=== PATIENT | female | born 1970 | race Two or more races ===

== ENCOUNTER 2025-03-03 18:40 | Emergency (ER) | payer SELFPAY ==
[2025-03-03 18:57] VITALS: BP 131/78; PULSE 76; RESP 18; TEMP 36.9; O2SAT 97; BMI 29.4
--- NOTE | 2025-03-03 20:00 | EDNOTE_ITS ---
ED Dental RME/HPI General Chief complaint: General Adult/Misc Complain Stated complaint: R CHEEK SWELLING AND HEADACHE SINCE YEST Time Seen by Provider: 03/03/25 18:51 Arrival date/time: 03/03/25 18:40 This is a case of 55-year-old female with no medical history came in in the emergency room due to dental pain and facial swelling history of present illness started 3 days prior to arrival in the emergency room when patient started to have pain on the right upper dental worsening of the symptoms now with swelling on the right cheek and pain extended to the right side of the head thus decided to sought consult here in the emergency room patient denies any fever or chills Limitations: no limitations Related Data Home Medications ?Medication ?Instructions ?Recorded ?Confirmed ibuprofen 800 mg tablet 800 mg PO Q8HR PRN PAIN #0 t abs 05/24/15 Previous Rx's ?Medication ?Instructions ?Recorded Hydrocodone/Acetaminophen * (NORCO 1 tab PO Q4H PRN PA IN #20 tabs 05/24/15 5/325 *) codeine 10 mg-guaifenesin 100 mg/5 5 ml PO Q4H PRN cou gh #118 mL 02/27/18 mL oral liquid (Guaiatussin AC) hydroxyzine HCl 25 mg tablet 25 mg PO TID PRN Anxiety #20 tabs 08/13/20 ipratropium bromide 21 mcg (0.03 2 spray intranasal BI D #30 mL 08/13/20 %) nasal spray prednisone 20 mg tablet See Rx Instructions .Route 0 08/13/20 .COMPLEX #8 tabs clindamycin HCl 300 mg capsule 300 mg PO Q6H 10 days # 40 caps 03/03/25 (Cleocin HCl) hydrocodone 5 mg-acetaminophen 325 1 tab PO Q6H PRN pa in #12 tabs 03/03/25 mg tablet Allergies Allergy/AdvReac Type Severity Reaction Status Date / Time No Known Allergies Allergy Verified 03/03/25 18:44 Review of Systems Review of Systems Systems Reviewed: All systems reviewed, normal except as documented Constitutional Constitutional: Reports system reviewed and no additional complaints, except as documented and Reports as per HPI ENT Ears, Nose, Mouth, and Throat: Reports system reviewed and no additional complaints, except as documented and Reports as per HPI Cardiovascular Cardiovascular: Reports system reviewed and no additional complaints, except as documented and Reports as per HPI Respiratory Respiratory: Reports system reviewed and no additional complaints, except as documented and Reports as per HPI Gastrointestinal Gastrointestinal: Reports system reviewed and no additional complaints, except as documented and Reports as per HPI Musculoskeletal Musculoskeletal: Reports system reviewed and no additional complaints, except as documented and Reports as per HPI Neurologic Neurologic: Reports system reviewed and no additional complaints, except as documented and Reports as per HPI Past Medical History Social History SMOKING STATUS: Light (< 1 pack/day) ED Exam General Limitations: Present no limitations General appearance: Present alert, in no apparent distress and other (Is awake alert oriented not in distress nontoxic looking well-hydrated well-nourished) Head Head exam: Present atraumatic, normocephalic and normal inspection Eye Eye exam: Present normal appearance, PERRL and EOMI ENT ENT exam: Present normal exam, normal oropharynx, mucous membranes moist and other (HEENT exam is normal and unremarkable) Expanded ENT Exam Mouth exam: Present normal external inspection; Absent drooling, trismus, lip swelling, tongue normal, tongue elevation or tongue swelling Teeth exam: Present dental caries, fractured tooth # and dental tenderness # Teeth numbered: 2 1. Fractured (Fracture tooth #4 with swelling of the gum and redness with dental tenderness) Neck Neck exam: Present normal inspection, full ROM and trachea midline Chest Chest inspection: Present normal inspection and symmetric chest wall rise Respiratory Respiratory exam: Present normal lung sounds bilaterally; Absent respiratory distress, wheezes, stridor, accessory muscle use or prolonged expiratory phase Cardiovascular Cardiovascular exam: Present regular rate, normal rhythm and normal heart sounds; Absent bradycardia, tachycardia, irregular rhythm or systolic murmur Abdominal Exam Abdominal exam: Present soft and normal bowel sounds; Absent distention, tenderness, guarding, rebound, rigidity or diminished bowel sounds Extremities Exam Extremities exam: Present normal inspection and full ROM Back Exam Back exam: Present normal inspection and full ROM Neurological Exam Neurological exam: Present alert, oriented X3, CN II-XII intact, normal gait and reflexes normal; Absent motor sensory deficit Psychiatric Psychiatric exam: Present normal affect and normal mood Skin Skin exam: Present warm, dry, intact, normal color and other (Swelling and redness on the right cheek suggestive of cellulitis) Course Quality Measures none Orders Category Date Time Status Clindamycin Vial [Cleocin vial] Med 03/03/25 19:49 Discontinued 600 mg IM X1 ONE HYDROcodone*/APAP 5/325 [[place] 5/325] Med 03/03/25 19:49 Discontinued 1 tab PO X1 ONE Vital Signs Vital signs: Vital Signs Temperature 98.4 F 03/03/25 18:57 Pulse Rate 76 03/03/25 18:57 Respiratory Rate 18 03/03/25 18:57 Blood Pressure 131/78 H 03/03/25 18:57 Pulse Oximetry (%) 97 03/03/25 18:57 Oxygen Delivery Method Room Air 03/03/25 18:57 Oxygen saturation is 97% in room air Dental / Oral MDM Narrative MDM Narrative:: This is a case of 55-year-old female with no medical history came in in the emergency room due to dental pain and facial swelling history of present illness started 3 days prior to arrival in the emergency room when patient started to have pain on the right upper dental worsening of the symptoms now with swelling on the right cheek and pain extended to the right side of the head thus decided to sought consult here in the emergency room patient denies any fever or chills physical examination patient is awake alert oriented not in distress nontoxic looking no drooling of saliva no Lion's angina no peritonsillar abscess HEENT exam is normal except dental exam noted right upper dental noted a tooth fracture on the right upper dental with swelling of the gum tenderness with mild abscess no dental avulsion patient noted to have swelling and redness of the right cheek suggestive of cellulitis based on my physical examination there is no indication to perform incision and drainage patient need antibiotic treatment patient was given clindamycin IM here in the emergency room and [place] which should resolve the pain and headache patient was discharged with clindamycin and [place] there were advised to follow-up with PCP and to see dentist this as soon as possible for further evaluation and possible dental procedure for any worsening symptoms or any emergent concern return precaution in the ER was advised Patient was discharged with comfortable condition walking with stable gait. Patient verbalized no further complains explained diagnosis and answered patient question. Patient is comfortable with the proposed management plan including the need to follow up with his/her primary care physician and any specialist if applicable Discussed patient for any urgent condition or worsening sx, He/She needed to go to emergency room immediately or call 911. Patient acknowledge the responsibility to follow up as instructed and to monitor her/his symptoms. For any persistence of the symptoms for more than 3-5 days return precaution advised. Discussed the result of the test and was given printed discharge instruction Patient data External records reviewed:: [facility] previous records Clinical information provided by:: family Social determinants that could affect healthcare access:: none Patient has the following chronic illnesses:: None How is presenting disease/condition affected by chronic disease/condition?: no chronic disease Evaluation data The following diagnostics were reviewed and interpreted by me:: other (specify) Lab and/or radiology exams considered but not ordered:: None Interpretation Summary: None Medications / Prescriptions Medications or Prescriptions considered but not ordered:: Given Medication administrations:: Medication Administration History Discontinued Medications Hydrocodone Bitart/Acetaminophen (Hydrocodone/Apap 5/325 Tablet) 1 tab PO X1 ONE Stop: 03/03/25 19:50 Clindamycin Phosphate (Clindamycin Phos Inj 150 Mg/Ml Vial 6 Ml) 600 mg IM X1 ONE Stop: 03/03/25 19:50 Given Consultations Consultation(s) initiated? (list below): No Diagnosis Dental Differential Diagnosis: dental caries, toothache and dental abscess Most likely diagnosis given after review of the tests above:: Tooth abscess with facial cellulitis Admission Indicated Admission indicated?: not indicated Explain why admission is indicated or not indicated:: Not indicated Admission Request Was there a request for admission?: No Disposition Plan Disposition Plan: Discharge Discharge Attestation Discharge Attestation: The patient and all family members were given an opportunity to ask questions and understood the discharge instructions. Discharge instructions specifically effects, indications for sooner follow up or return to the emergency department, and the expected course of current diagnosis. Patient condition: Stable Discharge Plan Plan Patient Disposition: HOME (Self Care) Patient condition on transfer: Stable Prescriptions/Referrals Prescriptions/Med Rec: New clindamycin HCl [Cleocin HCl] 300 mg capsule 300 mg PO Q6H 10 Days Qty: 40 0RF hydrocodone-acetaminophen 5-325 mg tablet 1 tab PO Q6H MDD max 4 tabs per day PRN (Reason: pain) Qty: 12 0RF No Action ibuprofen 800 MG tablet 800 mg PO Q8HR PRN (Reason: PAIN) Qty: 0 Hydrocodone/Acetaminophen * (NORCO 5/325 *) 1 TAB tablet 1 tab PO Q4H PRN (Reason: PAIN) Qty: 20 0RF codeine-guaifenesin [Guaiatussin AC] 10-100 mg/5 mL liquid 5 ml PO Q4H PRN (Reason: cough) Qty: 118 0RF Rx Instructions: Do not drive while taking this medicine start by taking it just at bedtime prednisone 20 mg tablet See Rx Instructions .ROUTE .COMPLEX Qty: 8 0RF Rx Instructions: 2 tabs (40mg) PO QAM x 3 days, then 1 tab (20mg) PO QAM x 2 days hydroxyzine HCl 25 mg tablet 25 mg PO TID PRN (Reason: Anxiety) Qty: 20 0RF ipratropium bromide 0.03 % spray,non-aerosol 2 spray INTRANASAL BID Qty: 30 0RF Rx Instructions: administer into each nostril Problem List Clinical Impression: Tooth abscess, Cellulitis of face Patient/Caregiver Discharge Instructions Education Materials: ED Cellulitis, ED Cellulitis, Facial, ED Tooth Abscess Additional Instructions: Follow-up with your primary care physician in 2 days for reevaluation it is very important to see your dentist in 2 days for reevaluation and possible dental procedure worsening symptoms or any emergent concern return to the emergency room immediately or call 911 and finish the course of antibiotic oral care is advised Print Language: Irish Stand Alone Forms: Yoselin Award Info., Patient Portal Info Letter PA/[employer] Supervising Physician PA/[employer] Supervising Physician: Dr. Peck
[2025-03-03] MEDS: HYDROcodone/APAP 5/325 TABLET 1 TAB PO (20:11)
[2025-03-03] MEDS: CLINDAMYCIN PHOS INJ 150 MG/ML VIAL 6 ML 600 MG IM (20:12)
== END 2025-03-03 20:20 | disposition home or self-care (01) ==
LOC: SERX 20:27
PROVIDERS: Emergency Provider Emergency Medicine; PCP Nurse Practitioner Primary Care
DX: K04.7 Periapical abscess without sinus (principal); L03.211 Cellulitis of face
CPT/HCPCS: 96372; 99282; J0736; A9270